=== PATIENT | female | born 1995 | race Caucasian/White ===

== ENCOUNTER 2016-05-03 15:54 | Emergency (ER) | payer MEDICAID ==
[2016-05-03] MEDS ORDERED: DEXAMETHASONE 4 MG TABLET ONE (17:37)
[2016-05-03] MEDS ORDERED: ACETAMINOPHEN 325 MG TABLET ONE (17:37)
== END 2016-05-03 17:59 | disposition home or self-care (01) ==
LOC: ED 15:54
DX: J06.9 Acute upper respiratory infection, unspecified (principal); J45.909 Unspecified asthma, uncomplicated
CPT/HCPCS: 87804; 99283 ×2; A9270 ×2